=== PATIENT | female | born 1945 | race Caucasian/White ===

== ENCOUNTER 2016-10-09 11:06 | Outpatient (CLI) | payer MEDICARE, OTHER | END 2016-10-09 11:07 | disposition home or self-care (01) | LOC: DI 11:06 | PROVIDERS: ATTEND Internal Medicine Cardiovascular Disease | DX: I42.9 Cardiomyopathy, unspecified (principal); I51.7 Cardiomegaly | CPT/HCPCS: 93306 ==

== ENCOUNTER 2016-12-27 10:15 | Outpatient (CLI) | payer MEDICARE, OTHER ==
--- NOTE | 2016-12-27 16:21 | DEXA Report ---
DEXA SCAN: 12/27/2016 CLINICAL INDICATION: Postmenopausal. TECHNIQUE: Dual energy x-ray absorptiometry (DXA) was performed on a [employer] system. Regions measured are the AP spine, femoral neck, and, if needed, forearm. COMPARISON: None. In accordance with the International Society for Clinical Densitometry (ISCD) guidelines, data from previous exams may be reanalyzed using current recommendations and techniques. This is done to allow a more accurate basis for comparison with the current study. FINDINGS The data for the lumbar spine is as follows: REGION BMD (g/cm/cm) T-SCORE Z-SCORE L1 0.830 -2.5 -0.8 L2 0.758 -3.7 -2.0 L3 0.857 -2.9 -1.2 L4 0.954 -2.1 -0.4 TOTAL 0.852 -2.7 -1.1 NOTE: All evaluable vertebrae are used for classification. The data for the hip is as follows: REGION BMD (g/cm/cm) T-SCORE Z-SCORE Neck 0.689 -2.5 -0.8 TOTAL 0.722 -2.33 -0.8 NOTE: The femoral neck or total proximal femur, whichever is lowest, is used for classification. IMPRESSION: THE WHO CLASSIFICATION BASED ON THE INTERNATIONAL REFERENCE STANDARD IS OSTEOPOROSIS. THE FRACTURE RISK IS HIGH. RECOMMENDATION: Patients with diagnosis of osteoporosis or osteopenia should have regular bone mineral density assessment. For those eligible for Medicare, routine testing is allowed once every 2 years. Testing frequency can be increased for patients who have rapidly progressing disease or for those who are receiving medical therapy to restore bone mass. COMMENT: World Health Organization (WHO) definitions for osteoporosis and osteopenia: NORMAL BMD: T-score at -1.0 or higher, fracture risk is low. OSTEOPENIA BMD: T-score between -1.0 and -2.5, fracture risk is increased. OSTEOPOROSIS BMD: T-score at -2.5 or lower, fracture risk high. National Osteoporosis Foundation recommends: 1. Obtain adequate dietary calcium (at least 1200 mg per day) and vitamin D (400 -800 international units per day). 2. Participate, as appropriate, in regular weightbearing and muscle- strengthening exercise. 3. Avoid tobacco use and reduce alcohol and caffeine intake. 4. For more detailed information see the website at www.NOF.org. MTDD
== END 2016-12-27 10:16 | disposition home or self-care (01) ==
LOC: DI 10:15
PROVIDERS: ATTEND Physician Assistant
DX: Z13.820 Encounter for screening for osteoporosis (principal); M81.0 Age-related osteoporosis without current pathological fracture; N95.8 Other specified menopausal and perimenopausal disorders
CPT/HCPCS: 77080

== ENCOUNTER 2018-05-13 13:00 | Outpatient (CLI) | payer MEDICARE, OTHER ==
--- NOTE | 2018-05-13 14:41 | Mammography Report ---
Reason: SCREENING MAMMO Procedure Date: 05/13/2018 Accession Number: [id number] / [id number] Procedure: MELI - Screening Mammo w/Frantz CPT Code: FULL RESULT: EXAM: Screening Mammo w/Frantz DATE: 05/13/2018 1:28 PM CLINICAL HISTORY: Routine screening. History of bilateral reduction mammoplasty. TECHNIQUE: Bilateral CC and MLO views were obtained. COMPARISON: 01/03/2016, 12/26/2015, 09/20/2014, 03/18/2013 and 11/05/2011 FINDINGS: There are scattered fibroglandular densities. No significant interval change. No suspicious masses, clustered microcalcifications, skin thickening, or new regions of architectural distortion are identified. Scattered benign-appearing calcifications and areas of postsurgical architectural distortion are stable. IMPRESSION: Benign findings RECOMMENDATION: Routine annual screening unless otherwise clinically indicated. BIRADS CATEGORY 2: Benign findings STANDARD QUALIFYING STATEMENTS: 1. This examination was not reviewed with the aid of Computer-Aided Detection (CAD). 2. A negative or benign imaging report should not delay biopsy if clinically suspicious findings are present. Consider surgical consultation if warrented. More than 5% of cancers are not identified by imaging. 3. Dense breasts may obscure an underlying neoplasm. 4. This examination was reviewed with the aid of 3D breast imaging (tomosynthesis).
== END 2018-05-13 13:01 | disposition home or self-care (01) ==
LOC: DI 13:00
PROVIDERS: ATTEND Physician Assistant
DX: Z12.31 Encounter for screening mammogram for malignant neoplasm of breast (principal)
CPT/HCPCS: 77063; 77067

== ENCOUNTER 2018-05-13 13:04 | Outpatient (CLI) | payer MEDICARE, OTHER ==
--- NOTE | 2018-05-13 15:32 | XRAY Report ---
Reason: DYSPNEA ON EXERTION Procedure Date: 05/13/2018 Accession Number: [id number] / [id number] Procedure: XR - Chest 2 View X-Ray CPT Code: 03525 FULL RESULT: EXAM: CHEST RADIOGRAPHY EXAM DATE: 05/13/2018 01:41 PM. CLINICAL HISTORY: DYSPNEA ON EXERTION. COMPARISON: 05/25/2014 TECHNIQUE: 2 views. FINDINGS: Lungs/Pleura: No focal opacities evident. No pleural effusion. No pneumothorax. Normal volumes. Mediastinum: Borderline heart size. Other: Mild degenerative change in the spine. IMPRESSION: Clear lungs. No acute findings compared with 05/25/2014. RADIA
== END 2018-05-13 13:05 | disposition home or self-care (01) ==
LOC: DI 13:04
PROVIDERS: ATTEND Physician Assistant
DX: R06.09 Other forms of dyspnea (principal)
CPT/HCPCS: 71046

== ENCOUNTER 2018-05-13 13:05 | Outpatient (CLI) | payer MEDICARE, OTHER | END 2018-05-13 13:06 | disposition home or self-care (01) | LOC: DI 13:05 | PROVIDERS: ATTEND Internal Medicine Cardiovascular Disease | DX: I42.9 Cardiomyopathy, unspecified (principal); I51.7 Cardiomegaly; R06.09 Other forms of dyspnea | CPT/HCPCS: 71046; 93306 ==

== ENCOUNTER 2019-04-21 10:55 | Outpatient (CLI) | payer MEDICARE, OTHER ==
--- NOTE | 2019-04-21 14:57 | DEXA Report ---
Reason: OSTEOPOROSIS Procedure Date: 04/21/2019 Accession Number: [id number] / [id number] Procedure: DEX - Dexa Spine and/or Hip CPT Code: Final Report FULL RESULT: EXAM: Dexa Spine and/or Hip DATE: 04/21/2019 11:29 AM CLINICAL HISTORY: Postmenopausal. Osteoporosis. TECHNIQUE: Dual energy x-ray absorptiometry (DXA) was performed on a [employer] [place] System. Regions measured are the AP Spine, femoral neck, and if needed forearm. COMPARISON: 12/27/2016 In accordance with the International Society for Clinical Densitometry (ISCD) guidelines, data from previous exams may be reanalyzed using current recommendations and techniques. This is done to allow a more accurate basis for comparison with the current study. FINDINGS: The data for the lumbar spine is as follows: BMD (g/cm/cm) T-SCORE Z-SCORE REGION L1 0.845 -2.4 -0.7 L2 0.904 -2.5 -0.8 L3 0.868 -2.8 -1.0 L4 0.891 -2.6 -0.9 TOTAL 0.877 -2.5 -0.8 NOTE: All evaluable vertebrae are used for classification The data for the hip is as follows: BMD (g/cm/cm) T-SCORE Z-SCORE REGION Neck 0.710 -2.4 -0.6 TOTAL 0.705 -2.4 -0.8 NOTE: The femoral neck or total proximal femur, whichever is lowest, is used for classification. DXA RESULTS SUMMARY: Spine SCAN DATE AGE BMD CHANGE VS CHANGE VS PREVIOUS PREVIOUS % 6/21/2019 [age] 0[age]877 0.025 2.9 12/27[birth year]2016 [age] 0.852 * Denotes significant change at the 95% confidence level. Denotes dissimilar scan types or analysis methods. DXA RESULTS SUMMARY: Hip SCAN DATE AGE BMD CHANGE VS CHANGE VS PREVIOUS PREVIOUS % [birth year][age][birth year]/2019 73.7 0.705 -0.017 -2.4 [birth year]27[birth year]2016 [age] 0.722 * Denotes significant change at the 95% confidence level. Denotes dissimilar scan types or analysis methods. IMPRESSION: THE WHO CLASSIFICATION BASED ON THE INTERNATIONAL REFERENCE STANDARD IS OSTEOPOROSIS. THE FRACTURE RISK IS HIGH. RECOMMENDATION: Patients with diagnosis of osteoporosis or osteopenia should have regular bone mineral density assessment. For those eligible for Medicare, routine testing is allowed once every 2 years. Testing frequency can be increased for patients who have rapidly progressing disease or for those who are receiving medical therapy to restore bone mass. COMMENT: World Health Organization (WHO) definitions for osteoporosis and osteopenia: NORMAL BMD: T-score at -1.0 or higher, fracture risk is low OSTEOPENIA BMD: T-score between -1.0 and -2.5, fracture risk is increased. OSTEOPOROSIS BMD: T-score at -2.5 or lower, fracture risk is high. National Osteoporosis Foundation recommends: 1. Obtain adequate dietary calcium (at least 1200 mg per day) and vitamin D (400-800 international units per day). 2. Participate, as appropriate, in regular weightbearing and muscle-strengthening exercise. 3. Avoid tobacco use and reduce alcohol and caffeine intake. 4. For more detailed information see the website at www.NOF.org.
--- NOTE | 2019-04-22 10:04 | XRAY Report ---
Reason: SWELLING,MASS,LUMP,TRUNK,OSTEOPOROSIS Procedure Date: 04/21/2019 Accession Number: [id number] / [id number] Procedure: XR - Sternum CPT Code: Final Report FULL RESULT: EXAM: STERNUM RADIOGRAPHY EXAM DATE: 04/21/2019 11:47 AM. CLINICAL HISTORY: SWELLING, MASS, LUMP, TRUNK, OSTEOPOROSIS. COMPARISON: CHEST 2 VIEW 05/13/2018 1:41 PM. TECHNIQUE: 2 views. FINDINGS: Bones: No fracture or bone lesion. Costochondral calcifications are noted. Soft Tissues: The visualized lungs are clear. IMPRESSION: 1. Costochondral calcifications. 2. No sternal fracture or lesion evident by plain film. If persistent clinical concern, consider CT. RADIA
== END 2019-04-21 10:56 | disposition home or self-care (01) ==
LOC: DI 10:55
PROVIDERS: ATTEND Physician Assistant
DX: M81.0 Age-related osteoporosis without current pathological fracture (principal); R22.2 Localized swelling, mass and lump, trunk
CPT/HCPCS: 71120; 77080

== ENCOUNTER 2019-04-30 12:35 | Outpatient (CLI) | payer MEDICARE, OTHER ==
--- NOTE | 2019-04-30 14:44 | CT Report ---
Reason: DEFORMITY OF STERNUM Procedure Date: 04/30/2019 Accession Number: [id number] / [id number] Procedure: CT - CHEST WO CPT Code: Final Report FULL RESULT: EXAM: CT CHEST EXAM DATE: 04/30/2019 12:50 PM. CLINICAL HISTORY: DEFORMITY OF STERNUM. COMPARISONS: None. TECHNIQUE: Routine helical CT imaging was performed through the chest. IV contrast: None. Reconstructions: Coronal and sagittal. In accordance with CT protocol optimization, one or more of the following dose reduction techniques were utilized for this exam: automated exposure control, adjustment of mA and/or KV based on patient size, or use of iterative reconstructive technique. FINDINGS: Lungs/Pleura: No suspicious nodules, bronchial thickening, consolidation, or edema. Pulmonary vasculature is normal. No pericardial or pleural effusion. No pneumothorax. Mediastinum: Normal. No adenopathy or masses. The heart and great vessels are normal. Bones: No aggressive osseous lesion is seen. Visualized Abdomen: Indeterminate 1.3 cm nodule adjacent to the spleen, potentially a splenule. Other: The palpable marker over the left upper central chest corresponds to the left sternoclavicular joint which demonstrates degenerative changes. IMPRESSION: Sternoclavicular joint with degenerative changes. 1.3 cm nodule adjacent to the spleen. This potentially represents a splenule. Definitive characterization could be performed with CT abdomen with contrast if clinically indicated. RADIA
== END 2019-04-30 12:36 | disposition home or self-care (01) ==
LOC: DI 12:35
PROVIDERS: ATTEND Physician Assistant
DX: M95.4 Acquired deformity of chest and rib (principal); M19.012 Primary osteoarthritis, left shoulder
CPT/HCPCS: 71250

== ENCOUNTER 2019-05-20 15:14 | Outpatient (CLI) | payer MEDICARE, OTHER ==
--- NOTE | 2019-05-20 16:15 | Mammography Report ---
Reason: ROUTINE MAMMO Procedure Date: 05/20/2019 Accession Number: [id number] / [id number] Procedure: MELI - Screening Mammo w/Frantz CPT Code: Final Report FULL RESULT: EXAM: Screening Mammo w/Frantz DATE: 05/20/2019 3:54 PM CLINICAL HISTORY: Screening encounter. History of late childbearing. TECHNIQUE: (B) - Bilateral CC and MLO views were obtained. Left laterally exaggerated CC view is obtained. COMPARISON: 05/13/2018 through 06/20/2009. PARENCHYMAL PATTERN: (A) - The breast(s) demonstrate(s) scattered fibroglandular densities. FINDINGS: There are no suspicious masses, calcifications, or areas of distortion. IMPRESSION: Negative examination. BI-RADS category 1. RECOMMENDATION: (ANNUAL) - Recommend routine annual screening mammography. BI-RADS CATEGORY: (1) - Negative. STANDARD QUALIFYING STATEMENTS: 1. This examination was not reviewed with the aid of Computer-Aided Detection (CAD). 2. A negative or benign imaging report should not preclude biopsy if clinically suspicious findings are present. 3. Dense breasts may obscure an underlying neoplasm. 4. This examination was reviewed with the aid of 3D breast imaging (tomosynthesis).
== END 2019-05-20 15:15 | disposition home or self-care (01) ==
LOC: DI 15:14
PROVIDERS: ATTEND Physician Assistant
DX: Z12.31 Encounter for screening mammogram for malignant neoplasm of breast (principal)
CPT/HCPCS: 77063; 77067

== ENCOUNTER 2020-01-02 08:00 | Outpatient (CLI) | payer MEDICARE, OTHER ==
--- NOTE | 2020-01-02 13:38 | XRAY Report ---
PROCEDURE: Knee 3 View LT INDICATIONS: LEFT KNEE EFFUSION TECHNIQUE: 3 views of the left knee(s) were acquired. COMPARISON: None. FINDINGS: Bones: Comminuted minimally displaced fracture of the patella. Fracture extends to the articular surf lj. No suspicious bony lesions. Soft tissues: Small knee joint effusion. No suspicious soft tissue calcifications. IMPRESSION: Comminuted minimally displaced fracture of the patella. Small knee joint effusion. Reviewed by: Elieser Wu on 01/02/2020 12:36 PM MOUSTAPHA Approved by: Elieser Wu on 01/02/2020 12:36 PM MOUSTAPHA Station ID: [id number]
== END 2020-01-02 23:59 | disposition home or self-care (01) ==
LOC: DI.S 08:00
PROVIDERS: ATTEND Emergency Medicine
DX: S82.042A Displaced comminuted fracture of left patella, initial encounter for closed fracture (principal)

== ENCOUNTER 2020-01-13 16:53 | Outpatient (CLI) | payer MEDICARE, OTHER ==
--- NOTE | 2020-01-13 16:57 | XRAY Report ---
PROCEDURE: Knee 2 View LT INDICATIONS: LEFT PATELLA FRACTURE TECHNIQUE: 2 views of the left knee(s) were acquired. COMPARISON: 01/02/2020 FINDINGS: Bones: Redemonstration of comminuted, displaced fracture of the patella with intra-articular extensio n. No new fracture seen. Alignment is stable. No suspicious bony lesions. Soft tissues: Persistent suprapatellar joint effusion. No suspicious soft tissue calcifications. IMPRESSION: Stable appearance and alignment of comminuted, intra-articular left patellar fracture. Reviewed by: Sebastián Venegas MD on 01/13/2020 4:56 PM PDT Approved by: Sebastián Venegas MD on 01/13/2020 4:56 PM PDT Station ID: [id number]
== END 2020-01-13 23:59 | disposition home or self-care (01) ==
LOC: DI.WCP 16:53
PROVIDERS: ATTEND Orthopaedic Surgery
DX: S82.042D Displaced comminuted fracture of left patella, subsequent encounter for closed fracture with routine healing (principal)

== ENCOUNTER 2020-02-10 07:00 | Outpatient (CLI) | payer MEDICARE, OTHER ==
--- NOTE | 2020-02-10 15:19 | XRAY Report ---
PROCEDURE: Knee 2 View LT INDICATIONS: FX OF LEFT PATELLA TECHNIQUE: 2 views of the left knee(s) were acquired. COMPARISON: 01/13/2020, 01/02/2020 FINDINGS: Bones: Comminuted patellar fracture is redemonstrated, though fracture planes are considerably less e vident compared to the prior study. Main visible fracture plane is transverse and there is a cleft-li ke defect along the articular surface. The patellar alignment remains normal. No suspicious bony les ions. Soft tissues: Small residual joint effusion. No suspicious soft tissue calcifications. IMPRESSION: 1. Healing of comminuted patellar fracture without displaced fragments. 2. Very small residual joint effusion. Reviewed by: Corie Membreno MD on 02/10/2020 3:18 PM PST Approved by: Corie Membreno MD on 02/10/2020 3:18 PM PST Station ID: [id number]
== END 2020-02-10 23:59 | disposition home or self-care (01) ==
LOC: DI.N 07:00
PROVIDERS: ATTEND Orthopaedic Surgery
DX: S82.042D Displaced comminuted fracture of left patella, subsequent encounter for closed fracture with routine healing (principal)

== ENCOUNTER 2020-04-20 07:00 | Outpatient (CLI) | payer MEDICARE, OTHER ==
--- NOTE | 2020-04-20 21:04 | XRAY Report ---
PROCEDURE: Knee Standing LT INDICATIONS: LEFT PATELLA FRACTURE TECHNIQUE: 4 views of the left knee, and 1 views of the right knee. COMPARISON: 02/10/2020 FINDINGS: Bones: Redemonstration of healing comminuted left patellar fracture with continued decreased conspicu ity of the fracture line. Main fracture line is transversely orientated. Persistent cleft-like defect involving the articular surface of the mid patella. No new acute fractures or dislocations. Weightb earing views of the bilateral knee demonstrate mild-moderate medial compartment joint space narrowing of the right knee. Mild joint space narrowing of the left medial compartment. No suspicious bony les ions. Soft tissues: Small joint effusion joint effusion. No suspicious soft tissue calcification. IMPRESSION: 1. Continued healing of comminuted left patellar fracture without evidence for displaced fracture fra gments. Stable alignment. 2. Small persistent joint effusion. 3. Bilateral knee osteoarthrosis. Reviewed by: Sebastián Lincoln MD on 04/20/2020 9:03 PM PST Approved by: Sebastián Lincoln MD on 04/20/2020 9:03 PM PST Station ID: [id number]
== END 2020-04-20 23:59 | disposition home or self-care (01) ==
LOC: DI.N 07:00
PROVIDERS: ATTEND Orthopaedic Surgery
DX: S82.045D Nondisplaced comminuted fracture of left patella, subsequent encounter for closed fracture with routine healing (principal); M25.462 Effusion, left knee; M17.0 Bilateral primary osteoarthritis of knee

== ENCOUNTER 2020-05-08 12:54 | Outpatient (CLI) | payer MEDICARE, OTHER ==
--- NOTE | 2020-05-10 12:00 | Mammography Report ---
BILATERAL DIGITAL SCREENING MAMMOGRAM 3D/2D WITH EXAGGERATED CC: 05/08/2020 CLINICAL: Routine screening. Routine screening. Comparison is made to exams dated: 05/20/2019 mammogram, 05/13/2018 mammogram, 01/03/2016 mammogram, an d 12/26/2015 mammogram - [facility]. There are scattered fibroglandular elements in both breasts. There is a possible developing 1 cm irregular equal density asymmetry in the right breast at 1 o'cloc k middle depth. This is more prominent and there is possible architectural distortion associated wit h the asymmetry. No other significant masses, calcifications, or other findings are seen in either breast. IMPRESSION: INCOMPLETE: NEEDS ADDITIONAL IMAGING EVALUATION The possible developing 1 cm irregular equal density asymmetry in the right breast is indeterminate. Additional views with possible ultrasound are recommended. This exam was interpreted at Station ID: [id number]. NOTE: For mammograms, a report in lay terms will be sent to the patient. Approximately 15% of breast malignancies will not be visualized mammographically. In the management of a palpable breast mass, a negative mammogram must not discourage biopsy of a clinically suspicious lesion. Electronically Signed By: Sebastián Venegas M.D. aty/:05/08/2020 17:38:20 ACR BI-RADS Category 0: Incomplete 3340F PARENCHYMAL PATTERN: (A) - The breast(s) demonstrate(s) scattered fibroglandular densities. BI-RADS CATEGORY: (0) - 0 Mammo and [place] [id number] Immediate follow-up LATERALITY: (R)
== END 2020-05-08 12:55 | disposition home or self-care (01) ==
LOC: DI.S 12:54
PROVIDERS: ATTEND Physician Assistant
DX: Z12.31 Encounter for screening mammogram for malignant neoplasm of breast (principal); R92.8 Other abnormal and inconclusive findings on diagnostic imaging of breast

== ENCOUNTER 2020-06-01 09:47 | Outpatient (CLI) | payer MEDICARE, OTHER ==
--- NOTE | 2020-06-02 12:10 | Mammography Report ---
UNILATERAL RIGHT DIGITAL DIAGNOSTIC MAMMOGRAM 3D/2D: 06/01/2020 CLINICAL: Patient returns today to evaluate a focal asymmetry in the right breast. Comparison is made to exams dated: 05/08/2020 mammogram, 05/20/2019 mammogram, 05/13/2018 mammogram, and 01/03/2016 mammogram - [facility]. There are scattered fibroglandular elements in right breast. There is a possible developing 1 cm irregular equal density asymmetry in the right breast at 1 o'cloc k middle depth. This is seen in additional views. There is architectural distortion associated with the asymmetry. No other significant masses or calcifications are seen in the breast. IMPRESSION: INCOMPLETE: NEEDS ADDITIONAL IMAGING EVALUATION The 1 cm irregular equal density asymmetry in the right breast is indeterminate. An ultrasound is re commended. US will be performed and dictated separately. This exam was interpreted at Station ID: [id number]. NOTE: For mammograms, a report in lay terms will be sent to the patient. Approximately 15% of breast malignancies will not be visualized mammographically. In the management of a palpable breast mass, a negative mammogram must not discourage biopsy of a clinically suspicious lesion. Electronically Signed By: Jann Galicia acr/:06/01/2020 11:06:55 ACR BI-RADS Category 0: Incomplete 3340F PARENCHYMAL PATTERN: (A) - The breast(s) demonstrate(s) scattered fibroglandular densities. BI-RADS CATEGORY: (0) - 0 Ultrasound [id number] Immediate follow-up LATERALITY: (R)
--- NOTE | 2020-06-02 12:10 | Ultrasound Report ---
LIMITED ULTRASOUND OF RIGHT BREAST: 06/01/2020 CLINICAL: Patient returns today to evaluate a focal asymmetry in the right breast. Comparison is made to exams dated: 06/01/2020 mammogram, 05/08/2020 mammogram, 05/20/2019 mammogram, 05/13 mammogram, 01/03/2016 mammogram, and 12/26/2015 mammogram - [facility]. Ultrasound of the right breast 12-2 o'clock region was performed. IMPRESSION: BENIGN There is no sonographic evidence of malignancy. There are no abnormalities seen in the right breast to correspond with the mammography findings at 1, 2, and 12 o'clock. The irregular equal density asymmetry in the right breast in the 1 o'clock middle depth described on screening mammogram has no ultrasound correlate. The abnormality appears unchanged compared to prior mammograms and is actually less conspicuous compared to the 2016 mammogram. Given these findings of stability and lack of ultrasound findings will return to screening mammogram. This exam was interpreted at Station ID: [id number]. Electronically Signed By: Jann Galicia acr/:06/01/2020 11:26:15 Ultrasound BI-RADS: 2 Benign BI-RADS CATEGORY: (2) - 2 Mammogram [id number] return to screening LATERALITY: (B)
== END 2020-06-01 09:48 | disposition home or self-care (01) ==
LOC: DI 09:47
PROVIDERS: ATTEND Physician Assistant
DX: R92.2 Inconclusive mammogram (principal)

== ENCOUNTER 2020-08-03 13:08 | Outpatient (CLI) | payer MEDICARE, OTHER | END 2020-08-03 13:09 | disposition home or self-care (01) | LOC: DI 13:08 | PROVIDERS: ATTEND Internal Medicine Cardiovascular Disease | DX: I42.9 Cardiomyopathy, unspecified (principal) | CPT/HCPCS: 93306 ==

== ENCOUNTER 2020-12-25 08:15 | Outpatient (CLI) | payer MEDICARE, OTHER ==
--- NOTE | 2020-12-25 08:49 | XRAY Report ---
PROCEDURE: Knee 4 View LT INDICATIONS: DISPLACED COMMINUTED FX OF L PATELLA TECHNIQUE: AP weightbearing views of both knees, tunnel view of the left knee, and lateral and sunris e views of the left knee. COMPARISON: None. FINDINGS: Bones: Both knees have calcifications within the joint space consistent with chondrocalcinosis. Small osteophytes and mild medial joint space narrowing bilaterally. The patella has enthesophytes. No fra ctures or dislocations. No suspicious bony lesions. Soft tissues: There is a suprapatellar joint effusion. No suspicious soft tissue calcifications. IMPRESSION: 1. Patellar fracture has healed. 2. Chondrocalcinosis. 3. Mild degenerative changes of both knees. Reviewed by: Jann Galicia on 12/25/2020 8:48 AM PDT Approved by: Jann Galicia on 12/25/2020 8:48 AM PDT Station ID: [id number]
== END 2020-12-25 23:59 | disposition home or self-care (01) ==
LOC: DI.N 08:15
PROVIDERS: ATTEND Orthopaedic Surgery
DX: S82.042A Displaced comminuted fracture of left patella, initial encounter for closed fracture (principal); M17.0 Bilateral primary osteoarthritis of knee; M11.262 Other chondrocalcinosis, left knee

== ENCOUNTER 2021-05-14 11:51 | Outpatient (CLI) | payer MEDICARE, OTHER ==
[2021-05-14] MEDS ORDERED: IOVERSOL 320 100 ML VIAL IVP ONE ×2 (12:04→13:02)
--- NOTE | 2021-05-14 15:55 | CT Report ---
PROCEDURE: ABDOMEN W INDICATIONS: SPLEEN NODULE CONTRAST: IV CONTRAST: Optiray 320 ml: 100 PO CONTRAST: *NO PO CONTRAST TECHNIQUE: After the administration of oral and intravenous contrast, 5 mm thick sections acquired from the diap hragms to the iliac crests. 5 mm thick coronal and sagittal reformats were acquired. For radiation dose reduction, the following was used: automated exposure control, adjustment of mA and/or kV accor ding to patient size. COMPARISON: Noncontrast chest CT 04/30/2019 FINDINGS: Image quality: Excellent. Lung bases: Clear lung bases. Mild cardiomegaly. No hiatal hernia. Solid organs: A 1.3 cm nodule arises posterior to the spleen and is isodense on postcontrast imaging as well as precontrast imaging (as seen on the prior study). No other splenic lesions. The spleen is normal size. The liver is normal without masses. Gallbladder is normal Biliary system is non dilated. Pancreas e nhances normally. No adrenal nodules. 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 Left kidney ap pears normal without hydronephrosis or definite nephrolithiasis on this postcontrast scan. No visible hydroureter. Peritoneum and bowel: Descending colon demonstrates occasional diverticulosis and is decompressed. T here is questionable wall thickening of the descending colon despite decompression. Contrast enhanced bowel loops appear otherwise normal in caliber. No free fluid or air. 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 No retroperitoneal or mesenteric jozef nopathy by size criteria. Aorta is normal in size. Bones: Decreased mineralization. Endplate and disc degeneration in the low lumbar spine. No vertebral body compression fractures. Miscellaneous: No ventral hernias. IMPRESSION: 1. Stable 1.3 cm exophytic splenic nodule isodense to spleen postcontrast and consistent with a splen ule. 2. Probably chronic descending colon diverticulitis without acute inflammatory changes visible. 3. 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 Reviewed by: Corie Membreno MD on 05/14/2021 3:54 PM PST Approved by: Corie Membreno MD on 05/14/2021 3:54 PM PST Station ID: [id number]
== END 2021-05-14 11:52 | disposition home or self-care (01) ==
LOC: DI 11:51
PROVIDERS: ATTEND Physician Assistant
DX: D73.89 Other diseases of spleen (principal); R93.3 Abnormal findings on diagnostic imaging of other parts of digestive tract; Q60.0 Renal agenesis, unilateral; Q26.8 Other congenital malformations of great veins
CPT/HCPCS: 74160; Q9967

== ENCOUNTER 2021-07-13 10:47 | Outpatient (CLI) | payer MEDICARE, OTHER ==
--- NOTE | 2021-07-13 12:22 | DEXA Report ---
PROCEDURE: Dexa Spine and/or Hip INDICATIONS: BONE DISORDER TECHNIQUE: Dual energy x-ray absorptiometry (DXA) was performed on a [employer] System. Regions measur ed are the AP Spine, femoral neck, and if needed forearm. COMPARISON: 09/20/2014. FINDINGS: Lumbar Spine: Bone Mineral Density 0.974 g/cm/cm,T score -1.7, osteopenia Left Hip: Bone Mineral Density 0.687 g/cm/cm,T score -2.5, osteoporosis Left Femoral Neck: Bone Mineral Density 0.737 g/cm/cm, T score -2.2, osteopenia (T score greater or equal to -1.0: NORMAL) (T score from -1.1 to -2.4: OSTEOPENIA) (T score less than or equal to -2.5 to: OSTEOPOROSIS) Impression: Osteoporosis. Patient's bone mineral density has decreased 5.9% in the interval since prior exam obta ined 09/20/2014. Patients with diagnosis of osteoporosis or osteopenia should have regular bone mineral density assess ment. For those eligible for Medicare, routine testing is allowed once every 2 years. Testing frequ ency can be increased for patients who have rapidly progressing disease or for those who are receivin g medical therapy to restore bone mass. Reviewed by: Carla Steve MD, PhD on 07/13/2021 12:21 PM PDT Approved by: Carla Steve MD, PhD on 07/13/2021 12:21 PM PDT Station ID: [id number]
== END 2021-07-13 10:48 | disposition home or self-care (01) ==
LOC: DI 10:47
PROVIDERS: ATTEND Physician Assistant
DX: M81.0 Age-related osteoporosis without current pathological fracture (principal)

== ENCOUNTER 2021-07-17 10:48 | Outpatient (CLI) | payer MEDICARE, OTHER ==
--- NOTE | 2021-07-23 15:55 | Mammography Report ---
BILATERAL DIGITAL SCREENING MAMMOGRAM 3D/2D WITH EXAGGERATED CC: 07/17/2021 CLINICAL: Routine screening. Comparison is made to exams dated: 06/01/2020 mammogram, 05/08/2020 mammogram, 05/20/2019 mammogram, 05/13 mammogram, and 01/03/2016 mammogram - [facility]. There are scattered fibrogl andular elements in both breasts. There are benign calcifications in both breasts. No significant masses, calcifications, or other findings are seen in either breast. There has been no significant interval change. IMPRESSION: BENIGN There is no mammographic evidence of malignancy. A 1 year screening mammogram is recommended. This exam was interpreted at Station ID: [id number]. NOTE: For mammograms, a report in lay terms will be sent to the patient. Approximately 15% of breast malignancies will not be visualized mammographically. In the management of a palpable breast mass, a negative mammogram must not discourage biopsy of a clinically suspicious lesion. Electronically Signed By: Alejandro Alvares M.D. [facility] [place]:07/23/2021 08:30:22 ACR BI-RADS Category 2: Benign Finding(s) 3342F PARENCHYMAL PATTERN: (A) - The breast(s) demonstrate(s) scattered fibroglandular densities. BI-RADS CATEGORY: (2) - 2 RECOMMENDATION: (ANNUAL) - Recommend routine annual screening mammography. [id number] 1 year screening LATERALITY: (B)
== END 2021-07-17 10:49 | disposition home or self-care (01) ==
LOC: DI.S 10:48
PROVIDERS: ATTEND Physician Assistant
DX: Z12.31 Encounter for screening mammogram for malignant neoplasm of breast (principal)

== ENCOUNTER 2022-07-25 13:16 | Outpatient (CLI) | payer MEDICARE, OTHER ==
--- NOTE | 2022-07-26 11:14 | Mammography Report ---
BILATERAL DIGITAL SCREENING MAMMOGRAM 3D/2D: 07/25/2022 CLINICAL: Routine screening. Comparison is made to exams dated: 07/17/2021 mammogram, 06/01/2020 mammogram, 05/08/2020 mammogram, 05/20 mammogram, 05/13/2018 mammogram, and 01/03/2016 mammogram - [facility]. There are scattered areas of fibroglandular density in both breasts (category b / 25%-50% glandular t issue). There are benign calcifications in both breasts. No significant masses, calcifications, or other findings are seen in either breast. There has been no significant interval change. IMPRESSION: BENIGN There is no mammographic evidence of malignancy. A 1 year screening mammogram is recommended. Based on the Tyrer Cuzick model (a risk assessment model) the patients lifetime risk is 3.3% and her 10 year risk is 3.0%. According to the ACR, ACS, and NCCN guidelines, an annual breast MRI exam erica g with mammogram is recommended if the patients lifetime risk is 20% or greater. This exam was interpreted at Station ID: [id number]. NOTE: For mammograms, a report in lay terms will be sent to the patient. Approximately 15% of breast malignancies will not be visualized mammographically. In the management of a palpable breast mass, a negative mammogram must not discourage biopsy of a clinically suspicious lesion. Electronically Signed By: Sebastián uhston/tyrese:07/25/2022 16:15:03 letter sent: No_Letter ACR BI-RADS Category 2: Benign Finding(s) 3342F PARENCHYMAL PATTERN: (A) - The breast(s) demonstrate(s) scattered fibroglandular densities. BI-RADS CATEGORY: (2) - 2 Mammogram [id number] 1 year screening LATERALITY: (B)
== END 2022-07-25 13:17 | disposition home or self-care (01) ==
LOC: DI 13:16
PROVIDERS: ATTEND Physician Assistant
DX: Z12.31 Encounter for screening mammogram for malignant neoplasm of breast (principal)

== ENCOUNTER 2023-03-10 11:28 | Outpatient (CLI) | payer MEDICARE, OTHER ==
--- NOTE | 2023-03-10 13:28 | CT Report ---
PROCEDURE: ABDOMEN/PELVIS W INDICATIONS: ABD PAIN CONTRAST: 100ml omni 300 TECHNIQUE: After the administration of oral and intravenous contrast, 5 mm thick sections acquired from the diap hragms to the symphysis. 5 mm thick coronal and sagittal reformats were acquired. For radiation dos e reduction, the following was used: automated exposure control, adjustment of mA and/or kV accordin g to patient size. COMPARISON: CT abdomen 05/14/2021. FINDINGS: Image quality: Excellent. Lung bases and heart: Unremarkable. Liver: No solid mass. Gallbladder and biliary tree: No radiopaque stones or wall thickening. No biliary dilation. Spleen: No splenomegaly. Small splenule. Pancreas: No pancreatic ductal dilation. Adrenals: No adrenal nodule. Kidneys and ureters: Right kidney is absent. No convincing left hydronephrosis. Left ureter is mildly prominent. No solid renal mass. Bowel and peritoneum: No bowel distension. No pathologic free fluid. Diverticulosis without evidence of diverticulitis. The appendix is not identified. Lymph nodes: No central or retroperitoneal adenopathy. Vessels: No infrarenal aortic aneurysm. Duplicated IVC. PELVIS Reproductive organs: Uterus is absent. Right ovarian calcification measuring 0.7 cm. Bladder: Decompressed. Pelvic lymph nodes: No pelvic adenopathy by size criteria. Bones: No aggressive osseous abnormality. Other: No significant ventral or inguinal hernia. IMPRESSION: Source for abdominal pain is not identified. No acute inflammatory process is seen. No free fluid. 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 Small right ovarian calcification. Reviewed by: Alejandro Alvares MD on 03/10/2023 1:27 PM PST Approved by: Alejandro Alvares MD on 03/10/2023 1:27 PM PST Station ID: [id number]
[2023-03-10] MEDS ORDERED: DIATRIZOATE MEGLU/DIATRIZO SOD 30 ML BOTTLE PO ONE (14:05)
[2023-03-10] MEDS ORDERED: iohexoL-300 100 ML VIAL IVP ONE (14:06)
== END 2023-03-10 11:29 | disposition home or self-care (01) ==
LOC: DI 11:28
PROVIDERS: ATTEND Physician Assistant
DX: R10.9 Unspecified abdominal pain (principal); Z90.5 Acquired absence of kidney; N83.8 Other noninflammatory disorders of ovary, fallopian tube and broad ligament; Q26.8 Other congenital malformations of great veins
CPT/HCPCS: 74177; Q9963; Q9967

== ENCOUNTER 2023-08-11 12:48 | Outpatient (CLI) | payer MEDICARE, OTHER ==
--- NOTE | 2023-08-12 08:55 | Mammography Report ---
BILATERAL DIGITAL SCREENING MAMMOGRAM 3D/2D: 08/11/2023 CLINICAL: Routine screening. Comparison is made to exams dated: 07/25/2022 mammogram, 07/17/2021 mammogram, 06/01/2020 mammogram, 05/08 mammogram, 05/20/2019 mammogram, and 05/13/2018 mammogram - [facility]. Both breasts are heterogeneously dense, which may obscure small masses (category c / 51-75% glandular tissue). There are benign calcifications in both breasts. No significant masses, calcifications, or other findings are seen in either breast. There has been no significant interval change. IMPRESSION: BENIGN There is no mammographic evidence of malignancy. A 1 year screening mammogram is recommended. Based on the Tyrer Cuzick model (a risk assessment model) the patient's lifetime risk is 4.3% and her 10 year risk is 0.0%. According to the ACR, ACS, and NCCN guidelines, an annual breast MRI exam erica g with mammogram is recommended if the patient's lifetime risk is 20% or greater. This exam was interpreted at Station ID: [id number]. NOTE: For mammograms, a report in lay terms will be sent to the patient. Approximately 15% of breast malignancies will not be visualized mammographically. In the management of a palpable breast mass, a negative mammogram must not discourage biopsy of a clinically suspicious lesion. Electronically Signed By: Eros [email or web address]/tyrese:08/11/2023 13:48:36 letter sent: No_Letter ACR BI-RADS Category 2: Benign Finding(s) 3342F PARENCHYMAL PATTERN: (D) - The breast(s) demonstrate(s) heterogeneously dense fibroglandular parmariaa gu. BI-RADS CATEGORY: (2) - 2 RECOMMENDATION: (ANNUAL) - Recommend routine annual screening mammography. [id number] 1 year screening LATERALITY: (B)
== END 2023-08-11 12:49 | disposition home or self-care (01) ==
LOC: DI 12:48
DX: Z12.31 Encounter for screening mammogram for malignant neoplasm of breast (principal); R92.333 Mammographic heterogeneous density, bilateral breasts